=== PATIENT | female | born 1995 | race African-American/Black ===

== ENCOUNTER 2019-11-20 09:19 | Outpatient (CLI) | payer OTHER ==
[2019-11-20] MEDS ORDERED: NORMAL SALINE 250 ML IV PRN (09:23)
[2019-11-20] MEDS ORDERED: FERRIC CARBOXYMALTOSE 750 MG in NORMAL SALINE 250 ML IV PRN (09:24)
[2019-11-20 09:33] VITALS: BP 109/65
== END 2019-11-20 10:29 | disposition home or self-care (01) ==
LOC: II 09:19 → 5TH 09:24 → II 10:29
PROVIDERS: ATTEND Obstetrics & Gynecology
DX: O99.013 Anemia complicating pregnancy, third trimester (principal)
CPT/HCPCS: 96365; J7050; J1439

== ENCOUNTER 2019-11-27 08:53 | Outpatient (CLI) | payer OTHER ==
[~2019-11-27 08:53] MED LIST: FERRIC CARBOXYMALTOSE 750 MG in NORMAL SALINE 250 ML IV PRN; NORMAL SALINE 250 ML IV PRN
[2019-11-27 09:32] VITALS: BP 101/61
== END 2019-11-27 10:06 | disposition home or self-care (01) ==
LOC: II 08:53 → 5TH 08:55 → II 10:06
PROVIDERS: ATTEND Obstetrics & Gynecology
DX: O99.019 Anemia complicating pregnancy, unspecified trimester (principal)
CPT/HCPCS: 96365; J7050; J1439

== ENCOUNTER 2020-01-23 09:45 | Outpatient (CLI) | payer OTHER ==
--- NOTE | 2020-01-23 10:31 | Non Stress Test Report ---
Non Stress Test Datetime Report Generated by CPN: 01/23/2020 10:31 DEMOGRAPHIC EGA NST: 37.5 VITAL SIGNS Pulse - NST: 100 NBPSYS NST: 118 NBPDIA NST: 59 MONITORING Monitor Explained: Monitor Explained; Test Explained; Patient Verbalized Understanding Time on Monitor: 01/23/2020 09:59 Time off Monitor: 01/23/2020 10:20 NST Duration: 21 NST INTERVENTIONS NST Interventions: PO Hydration; Reposition Patient Physician Notified NST: NMakenna Hinson, CNM BABY A: [id number] BABY A Movement : Present Contraction Frequency : None FHR Baseline : 135 Accelerations : 15X15 Decelerations : None Variability : Moderate 6-25bpm NST Review: Meets Criteria for Reactive NST NST Review and Verified By : JNiebuhrCHAZ NST Results: Reactive NST REPORT Report Trigger: Send Report
== END 2020-01-23 10:24 | disposition home or self-care (01) ==
LOC: LC 09:45
PROVIDERS: ATTEND Obstetrics & Gynecology
DX: Z34.93 Encounter for supervision of normal pregnancy, unspecified, third trimester (principal)
CPT/HCPCS: 59025

== ENCOUNTER 2020-02-05 18:33 | Inpatient (IN) | payer OTHER ==
[2020-02-05] MEDS ORDERED: PENICILLIN G-K 5 MILLION UNIT VIAL ONE ×2 (18:52→22:33)
[2020-02-05] MEDS ORDERED: RINGERS SOLUTION,LACTATED 1,000 ML IV PRN (19:01)
[2020-02-05] MEDS ORDERED: PENICILLIN G POTASSIUM 5,000,000 UNIT in DEXTROSE 5%-WATER 100 ML IV ONE (19:01)
[2020-02-05] MEDS ORDERED: RINGERS SOLUTION,LACTATED 1,000 ML IV ONE (19:01)
[2020-02-05 19:23] LABS: APPEARANCE,URINE SLIGHTLY-CLOUDY; BILIRUBIN,URINE NEGATIVE (NEGATIVE); COLOR,URINE YELLOW; GLUCOSE, URINE NEGATIVE (NEGATIVE); KETONES,URINE 80 mg/dL (NEGATIVE); LEUKOCYTE ESTERASE,URINE SMALL (NEGATIVE); NITRITE,URINE NEGATIVE (NEGATIVE); PROTEIN,URINE 30 mg/dL (NEGATIVE); URINE SPECIFIC GRAVITY 1.019; UROBILINOGEN,URINE NEGATIVE mg/dL (<2.0)
[2020-02-05 19:47] LABS: ABSOLUTE LYMPHOCYTES (AUTO) 1.8 10^3/uL (0.5-4.7); ABSOLUTE MONOCYTES (AUTO) 0.3 10^3/uL (0.1-1.4); ABSOLUTE NEUT (AUTO) 4.1 10^3/uL (1.7-8.2); BASOPHILS % (AUTO) 0.3 % (0-2); EOSINOPHILS % (AUTO) 0.2 % (0-6); HEMOGLOBIN 11.5 g/dL (12.0-15.5); MEAN CORPUSCULAR HEMOGLOBIN 27.5 pg (27.0-33.4); MEAN CORPUSCULAR HGB CONC 33.7 g/dL (32.0-36.0); MEAN CORPUSCULAR VOLUME 82 fl (80-97); MONOCYTES % (AUTO) 5.5 % (3-13); PLATELET COUNT 225 10^3/uL (150-450); RED BLOOD COUNT 4.16 10^6/uL (3.72-5.28); RED CELL DISTRIBUTION WIDTH 22.3 % (11.5-14.0); TOTAL CELLS COUNTED % (AUTO) 100 %; WHITE BLOOD COUNT 6.3 10^3/uL (4.0-10.5)
[2020-02-05 19:50] LABS: URINE AMPHETAMINES SCREEN NEGATIVE; URINE BARBITURATES SCREEN NEGATIVE; URINE BENZODIAZEPINES SCREEN NEGATIVE; URINE COCAINE SCREEN NEGATIVE; URINE METHADONE SCREEN NEGATIVE; URINE PHENCYCLIDINE SCREEN NEGATIVE
[2020-02-05 19:52] LABS: URINE MARIJUANA (THC) SCREEN UNCONFIRMED POSITIVE
--- NOTE | 2020-02-05 19:57 | Admission Physical ---
Datetime Report Generated by CPN: 02/05/2020 19:56 CURRENT ADMISSION Chief Complaint: Uterine Contractions Indication for Induction: Not Applicable Admit Impression : Term, Intrauterine ; Active Labor Admit Plan: Admit to Unit ALLERGIES Medication Allergies: No Medication Allergies: No Known Allergies (11/20/2019) Latex: No Latex Allergies OBSTETRICAL HISTORY EDC: 02/08/2020 00:00 : 5 Para: 3 Term: 3 : 0 IAB: 1 Ectopic: 0 Livin Cesareans: 0 VBACs: 0 Multiple Births: 0 Gestational Diabetes: No Rh Sensitization: No Incompetent Cervix: No NILESH: No Infertility: No ART Treatment: No Uterine Anomaly: No IUGR: No Hx Previous C/S: No Macrosomia: No Hx Loss/Stillborn: No PIH: No Hx : No Placenta Previa/Abruption: No Depression/PP Depression: No PTL/PROM: No Post Hemorrhage: No Current Procedures: Ultrasound; NST Obstetrical History Comments: G1-2011 G2-2012 -2015 IAB G5- Current SEE RECORDS Alcohol: No Marijuana : Yes Cocaine: No Other Illicit Drugs: No Cigarettes: Never Smoker. [id number] MEDICAL HISTORY Diabetes: No Blood Transfusion: No Pulmonary Disease (Asthma, TB): No Breast Disease: No Hypertension: No Seam Stay Stitcher Surgery: No Heart Disease: No Hosp/Surgery: No Autoimmune Disorder: No Anesthetic Complications: No Kidney Disease: No Abnormal Pap Smear: No Neuro/Epilepsy: No Psychiatric Disorders: No Other Medical Diseases: Yes Hepatitis/Liver Disease: No Significant Family History: No Varicosities/Phlebitis: No Trauma/Violence : No Thyroid Dysfunction: No Medical History Comments: Anemia INFECTIOUS HISTORY Gonorrhea: No Genital Herpes: No Chlamydia: No Tuberculosis: No Syphilis: No Hepatitis: No HIV/AIDS Exposure: No Rash or Viral Illness: No HPV: No PHYSICAL EXAM General: Normal HEENT: Normal Neurologic: Normal Thyroid: Normal Heart: Normal Lungs: Normal Breast: Deferred Back: Normal Abdomen: Normal Genitourinary Exam: Normal Extremities: Normal DTRs: Normal Pelvic Type: Adequate Vital Signs: Reviewed VAGINAL EXAM Dilatation: 5 Effacement: 90 Station: 0 MEMBRANES Pooling: Negative Membranes: Intact FETUS A EGA: 39.4 Monitoring: External US FHR- Baseline: 120 Variability: Moderate 6-25bpm Accelerations: 15X15 Decelerations: None FHR Category: Category I Presentation: Vertex Admit Comment: Admit for labor PLANS FOR LABOR AND DELIVERY Labor and Delivery: None Pain Management: Epidural Feeding Preference: Both Benefit of Breast Feed Discussed: Yes Circumcision: N/A INFORMED CONSENT Signature: with User ID: [email or web address]
[2020-02-05] MEDS ORDERED: FENTANYL/BUPIVACAINE/NS/PF 300 MCG/150 ML RTUINJ EPI ONE (20:00)
[2020-02-05] MEDS ORDERED: EPHEDRINE SULFATE INJ 50 MG/1 ML AMPULE ONE (20:00)
[2020-02-05] MEDS ORDERED: BUPIVACAINE HCL 0.25 % INJ/PF (2.5 MG/1 ML) 30 ML VIAL ONE (20:00)
[2020-02-05 20:05] LABS: ANISOCYTOSIS 3+; OVALOCYTES SLIGHT; PLATELET COMMENT ADEQUATE; POIKILOCYTOSIS SLIGHT
[2020-02-05] MEDS ORDERED: OXYTOCIN 10 UNIT/ML VIAL ONE (20:51)
[2020-02-05] MEDS ORDERED: OXYTOCIN/0.9 % SODIUM CHLORIDE 30 UNIT/500 ML RTUINJ ONE (20:52)
[2020-02-05] MEDS ORDERED: LIDOCAINE 1% INJ-PF (10 MG/ML) 30 ML SDV ONE (20:52)
[2020-02-05] MEDS ORDERED: MISOPROSTOL 0.2 MG TABLET ONE (20:52)
[2020-02-05] MEDS ORDERED: PENICILLIN G POTASSIUM 2,500,000 UNIT in DEXTROSE 5%-WATER 50 ML IV SCH (23:01)
[2020-02-06] MEDS ORDERED: PROMETHAZINE HCL INJ 25 MG/1 ML VIAL IV PRN (00:51)
[2020-02-06] MEDS ORDERED: PROMETHAZINE HCL 25 MG SUPP.RECT PR PRN (00:51)
[2020-02-06] MEDS ORDERED: GLYCERIN/WITCH HAZEL LEAF 1 EACH MED..WIPE TP PRN (00:51)
[2020-02-06] MEDS ORDERED: ACETAMINOPHEN 650 MG SUPP.RECT PR PRN (00:51)
[2020-02-06] MEDS ORDERED: BENZOCAINE/MENTHOL AEROSOL SPRAY 56 ML TOP PRN (00:51)
[2020-02-06] MEDS ORDERED: MAGNESIUM HYDROXIDE SUSP 30 ML UDCUP PO PRN (00:51)
[2020-02-06] MEDS ORDERED: PSEUDOEPHEDRINE HCL 30 MG TABLET PO PRN (00:51)
[2020-02-06] MEDS ORDERED: OXYTOCIN/0.9 % SODIUM CHLORIDE 30 UNIT/500 ML RTUINJ IV PRN (00:51)
[2020-02-06] MEDS ORDERED: ZOLPIDEM TARTRATE 5 MG TABLET PO PRN (00:51)
[2020-02-06] MEDS ORDERED: PROMETHAZINE HCL 25 MG TABLET PO PRN (00:51)
[2020-02-06] MEDS ORDERED: DIPH/PERTUSS(ACELL)/TETANUS VAC/PF 0.5 ML SYR (>=10YO) IM PRN (00:51)
[2020-02-06] MEDS ORDERED: NA PHOS,M-B/NA PHOS,DI-BA (ADULT) 133 ML ENEMA PR PRN (00:51)
[2020-02-06] MEDS ORDERED: DIBUCAINE 1% OINTMENT 28 GM TP PRN (00:51)
[2020-02-06] MEDS ORDERED: MEASLES,MUMPS&RUBELLA VACC/PF 0.5 ML VIAL SUBCUT PRN (00:51)
[2020-02-06] MEDS ORDERED: ACETAMINOPHEN WITH CODEINE #3 TABLET PO PRN ×2 (00:51)
[2020-02-06] MEDS ORDERED: DIPHENHYDRAMINE HCL 25 MG CAPSULE PO PRN (00:51)
--- NOTE | 2020-02-06 02:45 | Delivery Summary ---
Del Sum A-C Datetime Report Generated by CPN: 02/06/2020 02:45 DELIVERY PERSONNEL DELIVERY PERSONNEL: [id number] Delivery Doctor:: Savanah Mata MD Labor and Delivery Nurse:: Katja Ko RN Labor and Delivery Nurse:: Guillermina Khan RN Nursery Nurse:: Xiomara Livingston RN Nursery Nurse:: Aylin Aden RN Russian History Professor/SUBASSEMBLY ASSEMBLER: Dior Holland, ST MATERNAL INFORMATION Delivery Anesthesia: Epidural Medications After Delivery: Pitocin Bolus-Please Comment Meds After Delivery Comment: Pitocin 30 units/500 ml NSS Delivery QBL: 100 Maternal Complications: None LABOR SUMMARY EDC: 02/08/2020 00:00 No. Babies in Womb: 1 Attempted: No Labor Anesthesia: Epidural LABOR INFORMATION Reason for Induction: Not Applicable Onset of Labor: 02/05/2020 18:44 Complete Dilatation: 02/05/2020 23:24 Oxytocin: N/A Group B Beta Strep: Positive Antibiotics # of Doses: 2 Antibiotics Time of Last Dose: 2240 Name of Antibiotic Given: PCN Steroids Given: None Reason Steroids Not Administered: Not Applicable MEMBRANES Membranes Rupture Method: Artificial Rupture of Membranes: 02/05/2020 23:24 Length of Rupture (hr): 1.28 Amniotic Fluid Color: Clear Amniotic Fluid Amount: Small STAGES OF LABOR Stage 1 hr: 4 Stage 1 min: 40 Stage 2 hr: 1 Stage 2 min: 17 Stage 3 hr: 0 Stage 3 min: 4 Total Time in Labor hr: 6 Total Time in Labor min: 1 VAGINAL DELIVERY Episiotomy: None Laceration #1: None Laceration Extension #1: N/A Laceration Repair: Not Applicable Sponge Count Correct: N/A Sharps Count Correct: N/A CSECTION DELIVERY Primary Indication: N/A Secondary Indication: N/A CSection Urgency: N/A CSection Incidence: N/A Labor: N/A Elective: N/A CSection Incision: N/A BABY A INFORMATION Delivery Date/Time: 02/06/2020 00:41 Method of Delivery: Vaginal Nurse Controlled Delivery: No Born in Route : No : N/A Forceps: N/A Vacuum Extraction: N/A Shoulder Dystocia : No PRESENTATION/POSITION BABY A Presentation: Cephalic Cephalic Presentation: Vertex Vertex Position: Left Occipital Anterior Breech Presentation: N/A PLACENTA INFORMATION BABY A Placenta Delivery Time : 02/06/2020 00:45 Placenta Method of Delivery: Spontaneous Placenta Status: Delivered SCORES BABY A Heart Rate 1 min: >100 bpm Resp Effort 1 min: Good Cry Reflex Irritability 1 min: Cough or Sneeze or Pulls Away Muscle Tone 1 min: Active Motion Color 1 min: Blue/Pale Resuscitation Effort 1 min: Tactile Stimulation SCORE 1 MIN: 8 Heart Rate 5 min: >100 bpm Resp Effort 5 min: Good Cry Reflex Irritability 5 min: Cough or Sneeze or Pulls Away Muscle Tone 5 min: Active Motion Color 5 min: Body [place], Extremities Blue Resuscitation Effort 5 min: Tactile Stimulation SCORE 5 MIN: 9 INFORMATION BABY A Gestational Age at Delivery: 39.5 Gestational Status: Full Term- 39- 40.6 Weeks Outcome : Liveborn Condition : Stable Sex: Female IDENTIFICATION BABY A Verification Date/Time: 02/06/2020 01:00 ID Band Number: [id number] Mother's Name Verified: Yes Infant RN Verifying Infant: , RN/E.Khaliflek, RN WEIGHT/LENGTH BABY A Birthweight (gm): 2780 Weight (lb): 6 Weight (oz): 2 Infant Length (in): 20.00 Length (cm): 50.80 CORD INFORMATION BABY A No. Cord Vessels: 3 Nuchal Cord : N/A Cord Blood Taken: Yes-For Eval (Mom's Blood Type - or O+) Infant Suction: None ASSESSMENT BABY A Infant Complications: Meconium Physical Findings at Delivery: Other Physical Findings- Other: see nursery assessment Infant Respirations: Appears Normal Skin to Skin: Yes Speech And Hearing Director/ALS Called : No Care By: Gianfranco Aden RN and Shelly King RN Transferred To: Remains with Mother BABY B INFORMATION : N/A SIGNATURES Signature: with User ID: [email or web address]
--- NOTE | 2020-02-06 02:45 | Warning Signs in Babies ---
VOD Warning Signs Datetime Report Generated by [facility]: 02/06/2020 02:45 VOD#608 -Warning Signs in Babies: Needs to be viewed. (01/23/2020 10:04:Katja Ko RN)
[2020-02-06] MEDS: IBUPROFEN 800 MG TABLET PO SCH ×3 (05:17→22:02)
[2020-02-06] MEDS: FAMOTIDINE 20 MG TABLET PO SCH ×2 (09:13→22:04)
[2020-02-06] MEDS: DOCUSATE SODIUM 100 MG CAPSULE PO SCH ×2 (09:13→18:01)
[2020-02-06] MEDS: PRENATAL VITAMIN W DHA CAPSULE PO SCH (09:13)
[2020-02-06] MEDS: SENNOSIDES/DOCUSATE 8.6-50 MG 1 EACH TABLET PO SCH (09:13)
[2020-02-06] MEDS: FERROUS SULFATE 325 MG TABLET PO SCH ×2 (15:47→18:02)
[2020-02-07] MEDS: IBUPROFEN 800 MG TABLET PO SCH ×3 (05:38→22:04)
[2020-02-07 06:23] LABS: HEMATOCRIT 29.2 % (36.0-47.0); HEMOGLOBIN 10.2 g/dL (12.0-15.5); MEAN CORPUSCULAR HEMOGLOBIN 28.5 pg (27.0-33.4); MEAN CORPUSCULAR HGB CONC 34.9 g/dL (32.0-36.0); MEAN CORPUSCULAR VOLUME 82 fl (80-97); PLATELET COUNT 196 10^3/uL (150-450); RED BLOOD COUNT 3.57 10^6/uL (3.72-5.28); RED CELL DISTRIBUTION WIDTH 21.8 % (11.5-14.0); WHITE BLOOD COUNT 8.3 10^3/uL (4.0-10.5)
[2020-02-07] MEDS: PRENATAL VITAMIN W DHA CAPSULE PO SCH (09:41)
[2020-02-07] MEDS: DOCUSATE SODIUM 100 MG CAPSULE PO SCH ×2 (09:41→18:24)
[2020-02-07] MEDS: FAMOTIDINE 20 MG TABLET PO SCH ×2 (09:41→22:04)
[2020-02-07] MEDS: SENNOSIDES/DOCUSATE 8.6-50 MG 1 EACH TABLET PO SCH (09:41)
--- NOTE | 2020-02-07 10:22 | PDOC PROGRESS REPORT ---
Subjective-OB Progress Note for:: 02/07/20 Subjective: Pt doing well, no concerns. She is tearful about her visitor leaving, wants to go home today, however she is less than 48hrs from del with +GBS status and has had some elevated BPs 150/90s. Reports light bleeding, reg diet and is voiding without difficulty. Physical Exam (OB) Vital Signs: Temp Pulse Resp BP Pulse Ox 98.0 F 58 L 16 136/77 H 100 02/07/20 07:36 02/07/20 07:36 02/07/20 07:36 02/07/20 07:36 02/07/20 07:36 Intake & Output 02/06/20 02/07/20 02/08/20 06:59 06:59 06:59 Intake Total 1000 Balance 1000 Weight 62 kg - PIH/Pre-Eclampsia Headache: Absent Epigastric Pain: No Visual Changes: No - Lochia Lochia Amount: Scant < 10 ml Lochia Color: Rubra/Red - Abdomen Description: Soft Hernia Present: No Fundal Description: Firm, Midline Fundal Height: u/u - u/2 Objective-Diagnostic Laboratory: 02/07/20 05:38 02/07/20 05:38 WBC 8.3 RBC 3.57 L Hgb 10.2 L Hct 29.2 L MCV 82 MCH 28.5 MCHC 34.9 RDW 21.8 H Plt Count 196 Assessment and Plan(PN) - Assessment and Plan (1) Group beta Strep positive Is this a current diagnosis for this admission?: Yes (2) Vaginal delivery Is this a current diagnosis for this admission?: Yes - Time Spent with Patient Time with patient: Less than 15 minutes Medications reviewed and adjusted accordingly: Yes - Disposition Anticipated Discharge: Home Within: within 24 hours
[2020-02-07] MEDS: FERROUS SULFATE 325 MG TABLET PO SCH ×2 (11:25→18:24)
[2020-02-07 19:40] VITALS: BP 123/80
[2020-02-08] MEDS: IBUPROFEN 800 MG TABLET PO SCH (05:49)
[2020-02-08] MEDS: FERROUS SULFATE 325 MG TABLET PO SCH (09:17)
[2020-02-08] MEDS: PRENATAL VITAMIN W DHA CAPSULE PO SCH (09:17)
[2020-02-08] MEDS: SENNOSIDES/DOCUSATE 8.6-50 MG 1 EACH TABLET PO SCH (09:17)
[2020-02-08] MEDS: DOCUSATE SODIUM 100 MG CAPSULE PO SCH (09:17)
[2020-02-08] MEDS: FAMOTIDINE 20 MG TABLET PO SCH (09:18)
--- NOTE | 2020-02-08 10:45 | PDOC DISCHARGE SUMMARY ---
Impression - Admit/DC Date/PCP Admission Date/Primary Care Provider: 02/05/20 18:52 ANMOL HINES MD Discharge Date: 02/08/20 - Discharge Diagnosis (1) Group beta Strep positive Is this a current diagnosis for this admission?: Yes (2) Vaginal delivery Is this a current diagnosis for this admission?: Yes - Additional Information Resuscitation Status: Full Code Discharge Diet: Regular Discharge Activity: Balance Activity w/Rest, Pelvic Rest Referrals: ANMOL HINES MD [Primary Care Provider] - Prescriptions: Ibuprofen [Motrin 800 mg Tablet] 800 mg PO Q8HP PRN #60 tablet PRN Reason: Home Medications: Ibuprofen [Motrin 800 mg Tablet] 800 mg PO Q8HP PRN #60 tablet 02/08/20 HPI Gestational Age: 39 Reason(s) for Admission: Onset of Labor Procedures: NST Intrapartum Procedure(s): Spontaneous Vaginal Delivery Results Laboratory Results: WBC 8.3 10^3/uL (4.0-10.5) 02/07/20 05:38 RBC 3.57 10^6/uL (3.72-5.28) L 02/07/20 05:38 Hgb 10.2 g/dL (12.0-15.5) L 02/07/20 05:38 Hct 29.2 % (36.0-47.0) L 02/07/20 05:38 MCV 82 fl (80-97) 02/07/20 05:38 MCH 28.5 pg (27.0-33.4) 02/07/20 05:38 MCHC 34.9 g/dL (32.0-36.0) 02/07/20 05:38 RDW 21.8 % (11.5-14.0) H 02/07/20 05:38 Plt Count 196 10^3/uL (150-450) 02/07/20 05:38 Lymph % (Auto) 29.0 % (13-45) 02/05/20 19:14 [place] % (Auto) 5.5 % (3-13) 02/05/20 19:14 Eos % (Auto) 0.2 % (0-6) 02/05/20 19:14 Baso % (Auto) 0.3 % (0-2) 02/05/20 19:14 Absolute Neuts (auto) 4.1 10^3/uL (1.7-8.2) 02/05/20 19:14 Absolute Lymphs (auto) 1.8 10^3/uL (0.5-4.7) 02/05/20 19:14 Absolute Monos (auto) 0.3 10^3/uL (0.1-1.4) 02/05/20 19:14 Absolute Eos (auto) 0.0 10^3/uL (0.0-0.6) 02/05/20 19:14 Absolute Basos (auto) 0.0 10^3/uL (0.0-0.2) 02/05/20 19:14 Seg Neutrophils % 65.0 % (42-78) 02/05/20 19:14 Platelet Comment ADEQUATE 02/05/20 19:14 Poikilocytosis SLIGHT 02/05/20 19:14 Anisocytosis 3+ 02/05/20 19:14 Ovalocytes SLIGHT 02/05/20 19:14 Urine Color YELLOW 02/05/20 19:00 Urine Appearance SLIGHTLY-CLOUDY 02/05/20 19:00 Urine pH 7.0 (5.0-9.0) 02/05/20 19:00 Ur Specific [place] 1.019 02/05/20 19:00 Urine Protein 30 mg/dL (NEGATIVE) H 02/05/20 19:00 Urine Glucose (UA) NEGATIVE mg/dL (NEGATIVE) 02/05/20 19:00 Urine Ketones 80 mg/dL (NEGATIVE) H 02/05/20 19:00 Urine Blood MODERATE (NEGATIVE) H 02/05/20 19:00 Urine Nitrite NEGATIVE (NEGATIVE) 02/05/20 19:00 Urine Bilirubin NEGATIVE (NEGATIVE) 02/05/20 19:00 Urine Urobilinogen NEGATIVE mg/dL (<2.0) 02/05/20 19:00 Ur Leukocyte Esterase SMALL (NEGATIVE) H 02/05/20 19:00 Urine Ascorbic Acid NEGATIVE (NEGATIVE) 02/05/20 19:00 Urine Opiates Screen NEGATIVE 02/05/20 19:00 Urine Methadone Screen NEGATIVE 02/05/20 19:00 Ur Barbiturates Screen NEGATIVE 02/05/20 19:00 Ur Phencyclidine Scrn NEGATIVE 02/05/20 19:00 Ur Amphetamines Screen NEGATIVE 02/05/20 19:00 U Benzodiazepines Scrn NEGATIVE 02/05/20 19:00 Urine Cocaine Screen NEGATIVE 02/05/20 19:00 U Marijuana (THC) Screen UNCONFIRMED POSITIVE 02/05/20 19:00 RPR NONREACTIVE (NONREACTIVE) 02/05/20 19:14 Blood Type O POSITIVE 02/05/20 19:14 Antibody Screen NEGATIVE 02/05/20 19:14 Plan Plan of Treatment: f/u at [facility] Time Spent: Less than 30 Minutes
== END 2020-02-08 12:45 | disposition home or self-care (01) | DRG 807 ==
LOC: LC 18:33 → LR 18:52 → 2S 02-06 03:00
PROVIDERS: ADMIT Obstetrics & Gynecology; ATTEND Obstetrics & Gynecology
PROC: 10907ZC Drainage of Amniotic Fluid, Therapeutic from Products of Conception, Via Natural or Artificial Opening (ICD-10-PCS; 2020-02-05)
PROC: 10E0XZZ Delivery of Products of Conception, External Approach (ICD-10-PCS; principal; 2020-02-06)
DX: O99.824 Streptococcus B carrier state complicating childbirth (principal); O77.0 Labor and delivery complicated by meconium in amniotic fluid; Z37.0 Single live birth; Z3A.39 39 weeks gestation of pregnancy
CPT/HCPCS: 36415; 80307; 80349; 81005; 85025; 85027; 86592; 86850; 86900; 86901; 94760; G0480; J2540; J2590; J3010; J3490; J7060